=== PATIENT | female | born 1955 | race Caucasian/White ===

== ENCOUNTER 2016-12-03 08:32 | Day surgery (SDC) | payer MEDICARE, OTHER ==
[~2016-12-03 08:32] MED LIST: Lactated Ringers 1,000 ML IV SCH
[2016-12-03] MEDS ORDERED: Midazolam 1 MG/ML 2 ML SDV IV ONE (09:50)
[2016-12-03] MEDS ORDERED: Lidocaine 2% 100 MG/5 ML Syringe IVPUSH ONE (09:50)
[2016-12-03] MEDS ORDERED: Propofol 200 MG/20 ML SDV IV ONE (09:50)
--- NOTE | 2016-12-03 10:31 | PCM.OPNOTE ---
- General Post-Op/Procedure Note Date of Surgery/Procedure: 12/03/16 Operative Procedure(s): egd with bx. c scope Findings: gastritis esophagitis normal colon Pre Op Diagnosis: epigastric abd pain heme + stools due for c scope Post-Op Diagnosis: gastritis. esophagitis. normal colon Anesthesia Technique: MAC Primary Surgeon: Augusto Klein Anesthesia Provider: Oscar Aldridge Pathology: stomach and esophagus Complications: None Condition: Good Free Text/Narrative:: see dictation
[2016-12-03 12:30] VITALS: BP 123/70
--- NOTE | 2016-12-03 16:44 | OR ---
DATE OF OPERATION: 12/03/2016 SURGEON: Augusto Klein MD PROCEDURE PERFORMED: Esophagogastroduodenoscopy with cold forceps biopsy and colonoscopy. PREOPERATIVE DIAGNOSIS: Epigastric abdominal pain and heme-positive stools. POSTOPERATIVE DIAGNOSES: Gastritis and esophagitis. Normal colonoscopy. INDICATIONS FOR PROCEDURE: This is a 61-year-old white female who was referred with the above-mentioned issues. She was offered an upper endoscopy as well as a colonoscopy as she was due for that procedure as well. DESCRIPTION OF PROCEDURE: After an excellent IV sedation was administered, the bite block was inserted. The flexible endoscope was passed without difficulty down the patient's esophagus and into the stomach. The stomach was insufflated, scope was passed through the pylorus to the second portion of the duodenum and slowly withdrawn. The following findings were noted. Duodenum was unremarkable. Stomach demonstrated diffuse gastritis. Multiple biopsies were taken. GE junction measured at 40 cm, there was evidence of esophagitis, and biopsies were taken of this area as well. The remainder of the esophageal exam was unremarkable. The stomach was deflated, scope was removed. Our attention was then turned to the colon. Digital rectal exam was performed which was normal. The flexible colonoscope was inserted and advanced to the cecum without difficulty. The following findings were noted. Ascending colon, unremarkable. Transverse colon, unremarkable. Descending colon, unremarkable. Sigmoid and rectum were unremarkable. The colon was deflated. The scope was removed. The patient tolerated the procedure well and was taken to recovery room in good condition. /[id number] /MODL
== END 2016-12-03 12:32 | disposition home or self-care (01) ==
LOC: FB.SDS 08:32
PROVIDERS: ATTEND Surgery
DX: K29.50 Unspecified chronic gastritis without bleeding (principal); K20.9 Esophagitis, unspecified; F33.0 Major depressive disorder, recurrent, mild; F41.9 Anxiety disorder, unspecified; Z79.82 Long term (current) use of aspirin; Z79.899 Other long term (current) drug therapy; Z96.653 Presence of artificial knee joint, bilateral; Z90.49 Acquired absence of other specified parts of digestive tract; Z90.710 Acquired absence of both cervix and uterus; Z98.890 Other specified postprocedural states
CPT/HCPCS: 00810; 43239; 45378; 88305; 88313; 88342; J2250; J2704; J7120